=== PATIENT | male | born 1995 | race Caucasian/White ===

== ENCOUNTER 2017-10-27 23:04 | Emergency (ER) | payer MEDICAID ==
[~2017-10-27] VITALS: Ht 180.3 cm; Wt 73.7 kg
[~2017-10-27 23:04] MED LIST: HYDR-569 PO; IBUP-1985 PO; IBUP-1986 PO; METH-360 PO; ONDA4TAB6 PO; SACC250C PO
[2017-10-28 01:08] VITALS: BP 110/72
[2017-10-28] MEDS ORDERED: bacitracin 15gm ointment TP ONE (02:00)
[2017-10-28] MEDS ORDERED: IBUP-1984 PO (02:56)
[2017-10-28] MEDS ORDERED: HYDR-569 PO (02:56)
== END 2017-10-28 03:22 | disposition home or self-care (01) ==
LOC: ER 23:05
DX: S02.32XA Fracture of orbital floor, left side, initial encounter for closed fracture (principal); S02.2XXA Fracture of nasal bones, initial encounter for closed fracture; S01.112A Laceration without foreign body of left eyelid and periocular area, initial encounter; F12.90 Cannabis use, unspecified, uncomplicated; Z91.030 Bee allergy status; Z79.899 Other long term (current) drug therapy; Z56.0 Unemployment, unspecified; W50.0XXA Accidental hit or strike by another person, initial encounter; Y93.01 Activity, walking, marching and hiking; Y92.89 Other specified places as the place of occurrence of the external cause; Y99.8 Other external cause status
CPT/HCPCS: 12013; 70450; 70486; 99284; A6449